=== PATIENT | male | born 1945 | race Caucasian/White ===

== ENCOUNTER 2016-10-31 11:13 | Emergency (ER) | payer MEDICARE, OTHER ==
[~2016-10-31] VITALS: Ht 175.3 cm; Wt 90.0 kg
[2016-10-31 11:17] VITALS: BP 177/98; PULSE 83; RESP 18; TEMP 97.8; O2SAT 94
--- NOTE | 2016-10-31 11:21 | PD ---
HPI . needs suprapubic catheter changed Chief Complaint: Complaint Time Seen by Provider: 11:21 Travel History International Travel<30 days: No Contact w/Intl Traveler<30days: No Traveled to known affect area: No History of Present Illness HPI 71 yr old male with hx of rectal cancer back in 2009 here requesting his suprapubic catheter be changed. Patient tells me that as a consequence of his surgery and radiation therapy back in 2009 he was given a colostomy and a suprapubic catheter. He usually has catheter changed every 6 weeks at [facility], however has been unable to drive to 350 miles over there. He is 2 weeks overdue for a change. He denies any fever or chills. He has no other complaints. He denies any pain. He is in the process of establishing with local urologist, however there's been some issues with obtaining his records and he has not been able to get an appointment. He tells me his been waiting for over one week to try to get his records from [facility] here to [place]. He is uncertain of the size of the catheter. [facility] Past Medical History Medical History: Denies Significant Hx Social History Alcohol Use: No Tobacco Use: No Substance Use: No Allergies-Medications (Allergen,Severity, Reaction): Coded Allergies: Sulfa (Verified Allergy, Severe, Itching, 10/31/16) Reported Meds & Prescriptions Reported Meds & Active Scripts Active No Active Prescriptions or Reported Medications Review of Systems General / Constitutional: No: Fever Eyes: No: Visual changes HENT: No: Headaches Cardiovascular: No: Chest Pain or Discomfort Respiratory: No: Shortness of Breath Gastrointestinal: No: Abdominal Pain Genitourinary: No: Dysuria Musculoskeletal: No: Pain Skin: No Rash Neurologic: No: Weakness Psychiatric: No: Depression Endocrine: No: Polydipsia Hematologic/Lymphatic: No: Easy Bruising Physical Exam Narrative GENERAL: AAO x 3, no acute distress, Well-nourished, well-developed patient. SKIN: Warm and dry. No visible rashes or bruising. HEAD: Normocephalic and atraumatic. EYES: No scleral icterus. No injection or drainage. EOM intact, PERRLA ENT: No nasal drainage noted. Mucous membranes pink. Airway patent. NECK: Supple, trachea midline. No JVD. CARDIOVASCULAR: Regular rate and rhythm without murmurs, gallops, or rubs. RESPIRATORY: Breath sounds equal bilaterally. No accessory muscle use. No rhonchi or rales. GASTROINTESTINAL: Abdomen soft, non-tender, nondistended. colostomy pouch without evidence of surrounding cellulitis or irregularity, suprapubic catheter extending out of umbilicus without any gross abn. EXTREMITIES: No cyanosis or edema. BACK: No obvious deformity. No CVA tenderness. 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 Data Data Last Documented VS Vital Signs Date Time Temp Pulse Resp B/P Pulse Ox O2 Delivery O2 Flow Rate FiO2 10/31/16 11:21 16 10/31/16 11:17 97.8 83 177/98 94 MDM Medical Decision Making Medical Screen Exam Complete: Yes Emergency Medical Condition: Yes Medical Record Reviewed: Yes Differential Diagnosis defective remote medical coder, suprapubic catheter change, less likely infection Narrative Course 71 yr old male here requesting a change of his suprapubic catheter. He is unaware of the exact size, which makes it very difficult for us to change. We have reached out to [facility] to see if we can get the exact size of this device. 1208: Urology facility is closed for lunch. We will still try to obtain records. I discussed with patient. He will also try to reach out to the facility to see if he can get the exact size of the catheter. If he can, he will return to the ED at his convenience, as he does not want to wait. I have discussed with Dr. Reid my attending. He is in agreement. Patient verbalized understanding of instructions, questions were answered, and thanked me for their care. I advised them if their condition worsens, please return to the nearest emergency room for further care. Diagnosis Primary Impression: Chronic suprapubic catheter Patient Instructions: General Instructions Additional Instructions: Try to follow up with your urologist to have this catheter change. If you happen to find out the size of the catheter, you're more than welcome to return to the emergency department for a change. Med/Other Pt SpecificInfo: No Change to Meds Scripts No Active Prescriptions or Reported Meds Disposition: 01 DISCHARGE HOME Condition: Stable Lynette Arnold Oct 31, 2016 11:21
== END 2016-10-31 12:33 | disposition home or self-care (01) ==
LOC: NEPD 11:13
DX: Z43.5 Encounter for attention to cystostomy (principal)
CPT/HCPCS: 99281

== ENCOUNTER 2016-11-03 12:12 | Emergency (ER) | payer MEDICARE, OTHER ==
[~2016-11-03] VITALS: Ht 172.7 cm; Wt 105.2 kg
[2016-11-03 12:16] VITALS: BP 136/83; PULSE 81; RESP 16; TEMP 98.4; O2SAT 16; O2SAT 98
--- NOTE | 2016-11-03 13:25 | PD ---
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 Patient states that he has had the catheter since 2006 2 rectal cancer surgery. A colostomy was also established at that time. He states that he has the catheter changed every 6 weeks in [place]. He is in the process of establishing care with a local urologist. He does pass a little urine through the urethra occasionally, denies dysuria. Denies fever, chills, nausea, vomiting, skin changes. The patient called [place] [facility] and was told that his catheter is sized 18F. PFSH Past Medical History Cancer: Yes (RECTAL) Diminished Hearing: No Radiation Therapy: Yes Influenza Vaccination: Yes Past Surgical History Genitourinary Surgery: Yes (URINARY TRACT RECONSTRUCTION, SUPRAPUBIC CATH) Tonsillectomy: Yes Social History Alcohol Use: Yes (BEER DAILY) Tobacco Use: No Substance Use: No Allergies-Medications (Allergen,Severity, Reaction): Coded Allergies: Sulfa (Verified Allergy, Severe, Itching, 11/03/16) Reported Meds & Prescriptions Reported Meds & Active Scripts Active No Active Prescriptions or Reported Medications Review of Systems Except as stated in HPI: all other systems reviewed are Neg Physical Exam Narrative GENERAL: Well-nourished, well-developed white male in NAD. SKIN: Focused skin assessment warm/dry. Suprapubic catheter emanates from the umbilicus. Colostomy in place with liquid stool in the bag. Surrounding skin for both is without signs of infection. HEAD: Normocephalic. EYES: No scleral icterus. No injection or drainage. NECK: Supple, trachea midline. No JVD or lymphadenopathy. CARDIOVASCULAR: Regular rate and rhythm without murmurs, gallops, or rubs. RESPIRATORY: Breath sounds equal bilaterally. No accessory muscle use. GASTROINTESTINAL: Abdomen soft, non-tender, nondistended. Active bowel sounds. MUSCULOSKELETAL: No cyanosis, or edema. BACK: Nontender without obvious deformity. No CVA tenderness. Data Data Last Documented VS Vital Signs Date Time Temp Pulse Resp B/P Pulse Ox O2 Delivery O2 Flow Rate FiO2 11/03/16 12:16 98.4 81 16 136/83 98 MDM Medical Decision Making Medical Screen Exam Complete: Yes Emergency Medical Condition: Yes Differential Diagnosis suprapubic catheter change versus medical parasitologist failure versus Narrative Course 71 YO M with complaint of need for suprapubic catheter change. Patient states that he has had the catheter since 2006 2/2 rectal cancer surgery. A colostomy was also established at that time. He states that he has the catheter changed every 6 weeks in [place]. He is in the process of establishing care with a local urologist. Denies fever, chills, nausea, vomiting, skin changes, dysuria. Vitals reviewed. No signs of infection of the suprapubic catheter tract. Catheter was exchanged without incident. Patient is instructed to follow with urology as planned. He is stable and discharged home. Diagnosis Primary Impression: Chronic suprapubic catheter Additional Impression: Catheter (urine) change required Referrals: Urologist Patient Instructions: General Instructions, How to Care for Your Suprapubic Catheter (ED) Additional Instructions: Follow up with the urologist as planned. Return to the ED for any urgent or emergent medical condition. Scripts No Active Prescriptions or Reported Meds Disposition: 01 DISCHARGE HOME Condition: Stable Alison Miller Nov 03, 2016 13:25
== END 2016-11-03 14:26 | disposition home or self-care (01) ==
LOC: NEPD 12:12
DX: Z46.82 Encounter for fitting and adjustment of non-vascular catheter (principal)
CPT/HCPCS: 51705

== ENCOUNTER → 2017-01-08 | Outpatient (CLI) | payer MEDICARE, OTHER ==
[~2017-01-08] MED LIST: ALPR.5 PO
== END ==
LOC: CLAB 10:46
PROVIDERS: ATTEND Urology
DX: R33.9 Retention of urine, unspecified (principal)
CPT/HCPCS: 36415; 84153

== ENCOUNTER → 2017-04-16 | Outpatient (CLI) | payer MEDICARE, OTHER ==
[2017-04-16 11:20] LABS: BASOPHIL % 0.6 % (0.0-2.0); EOSINOPHIL # 0.2 TH/MM3 (0-0.4); EOSINOPHIL % 3.2 % (0.0-4.0); HEMATOCRIT 46.9 % (39.0-51.0); HEMO FLAGS DIFF FINAL; LYMPH % 12.7 % (9.0-44.0); LYMPHOCYTE # 0.7 TH/MM3 (1.0-4.8); MEAN CELL VOLUME 97.6 FL (80.0-100.0); MEAN CORPUSCULAR HGB CONC 32.8 % (32.0-36.0); MONO % 10.7 % (0.0-8.0); NEUT % 72.8 % (16.0-70.0); PLATELET COUNT 196 TH/MM3 (150-450); RED BLOOD COUNT 4.81 MIL/MM3 (4.50-5.90); RED CELL DISTRIBUTION WIDTH 13.7 % (11.6-17.2); WHITE BLOOD COUNT 5.6 TH/MM3 (4.0-11.0)
[2017-04-16 12:01] LABS: ANION GAP 7 MEQ/L (5-15); AST (GOT) 11 U/L (15-37); BICARBONATE 23.9 MEQ/L (21.0-32.0); BLOOD UREA NITROGEN 25 MG/DL (7-18); CHLORIDE 111 MEQ/L (98-107); GLOMERULAR FILTRATION RATE 35 ML/MIN (>89); GLUCOSE,FASTING 93 MG/DL (74-99); POTASSIUM 4.6 MEQ/L (3.5-5.1); SODIUM (NA) 142 MEQ/L (136-145)
[2017-04-16 12:25] LABS: ALKALINE PHOSPHATASE 61 U/L (45-117); ALT (GPT) 25 U/L (12-78); FREE T4 0.99 NG/DL (0.76-1.46); LDL CHOLESTEROL 121 MG/DL (0-99); TOTAL BILIRUBIN ADULT 0.3 MG/DL (0.2-1.0)
== END ==
LOC: CLAB 10:45
PROVIDERS: ATTEND Family Medicine
DX: Z00.01 Encounter for general adult medical examination with abnormal findings (principal); F43.22 Adjustment disorder with anxiety; E66.09 Other obesity due to excess calories; E55.9 Vitamin D deficiency, unspecified; R53.83 Other fatigue; Z93.2 Ileostomy status; Z12.5 Encounter for screening for malignant neoplasm of prostate
CPT/HCPCS: 36415; 80053; 80061; 82306; 82607; 82746; 84153; 84439; 84443; 85025